=== PATIENT | male | born 1980 | race Hispanic/Latino ===

== ENCOUNTER 2017-04-10 06:11 | Inpatient (IN) | payer SELFPAY ==
--- NOTE | 2017-04-10 06:34 | ED.PDOC ---
History of Present Illness - General Information Source: patient, RN notes reviewed, Vital Signs reviewed Exam Limitations: no limitations - History of Present Illness Initial Comments: Patient reports he started with R sided abdominal pain @ 22:00 last night. The pain is sharp. He had 3 episodes of diarrhea and 2 of vomiting. No fever or chills. No urinary symptoms. Bumps in the car worsened the pain. The had pizza for dinner. Denies any prior similar episodes. Abdominal Pain Onset Location: RUQ, RLQ Pain Radiation: no radiation Quality: severe, sharpness, stabbing Timing/Duration: 7-24 hours Improving Factors: medication - Pepto seems to help briefly Worsening Factors: movement Associated Symptoms: diarrhea, nausea/vomiting <Dulce Henry - Last Filed: 04/10/17 06:32> <aVsiliy Gayle - Last Filed: 04/10/17 07:40> - General Chief Complaint: Abdominal Pain Stated Complaint: right lower abdomen pain Time Seen by Provider: 04/10/17 06:11 Review of Systems - Review of Systems Constitutional: States: no symptoms reported. Denies: chills, diaphoresis, fever, malaise Respiratory: States: no symptoms reported. Denies: short of breath Cardiology: States: no symptoms reported. Denies: chest pain Gastrointestinal/Abdominal: States: see HPI, abdominal pain, diarrhea, nausea, vomiting Genitourinary: States: no symptoms reported Musculoskeletal: States: no symptoms reported Skin: States: no symptoms reported Neurological: States: no symptoms reported All other Systems: No Change from Baseline <Dulce Henry - Last Filed: 04/10/17 06:32> Past Medical History (General) - Patient Medical History Hx Seizures: No Hx Stroke: No Hx Dementia: No Hx Asthma: No Hx of COPD: No Hx Cardiac Disorders: No Hx Congestive Heart Failure: No Hx Pacemaker: No Hx Hypertension: No Hx Thyroid Disease: No Hx Diabetes: No Hx Gastroesophageal Reflux: No Hx Renal Disease: No Hx Cancer: No Hx of HIV: No Hx Hepatitis C: No Hx MRSA: No - Vaccination History Hx Tetanus, Diphtheria Vaccination: No Hx Influenza Vaccination: No Hx Pneumococcal Vaccination: No - Social History Hx Tobacco Use: No Hx Alcohol Use: No Hx Substance Use: No Hx Substance Use Treatment: No Hx Depression: No <Dulce Henry - Last Filed: 04/10/17 06:32> Family Medical History - Family History Mother Family History: No Known <Dulce Henry - Last Filed: 04/10/17 06:32> Physical Exam - Physical Exam General Appearance: Alert, Comfortable, No apparent distress, Obese, Well Developed, Well Groomed, Well Hydrated, Well Nourished Neck: non-tender, full range of motion, supple, normal inspection Respiratory: lungs clear, normal breath sounds, no respiratory distress, no accessory muscle use Cardiovascular/Chest: regular rate, rhythm, no edema, no gallop, no murmur Peripheral Pulses: 2+ Gastrointestinal/Abdominal: normal bowel sounds, no pulsatile mass, guarding, rebound - RLQ, tenderness - RUQ & RLQ Extremity: normal range of motion, non-tender, normal inspection, no pedal edema Neurologic: alert, normal mood/affect, oriented x 3 Skin Exam: normal color, warm/dry <Dulce Henry - Last Filed: 04/10/17 06:32> Progress - Progress Progress: 04/10/17 07:37 pt with rlq pain since 10pm last night. no definite fever or prior symptoms. ct cw early appendicitis without abscess formation or perforation. no obstruction. npo except water since last night. previously healthy. consulting dr garner ofr surgical evaluation. cefoxitin given. blood cultures taken. vitals stable. - Results/Orders Results/Orders: Laboratory Tests 04/10/17 04/10/17 06:42 06:42 WBC 20.4 H* RBC 5.31 Hgb 15.1 Hct 46.0 MCV 86.7 MCH 28.5 MCHC 32.9 L RDW 12.7 Plt Count 317 MPV 8.2 Absolute Neuts (auto) 16.00 H Absolute Lymphs (auto) 2.40 Absolute Monos (auto) 1.60 H Absolute Eos (auto) 0.20 Absolute Basos (auto) 0.10 Neutrophils % 78.6 H Neutrophils % (Manual) 78.0 Lymphocytes % 12.0 L Lymphocytes % (Manual) 12.0 Monocytes % 7.8 Monocytes % (Manual) 6.0 Eosinophils % 1.1 Basophils % 0.5 Band Neutrophils 3.0 Eosinophils 1.0 Platelet Estimate Normal Normal RBC Morphology Normal rbc morph Sodium 140 Potassium 4.2 Chloride 103 Carbon Dioxide 27 Anion Gap 14.2 BUN 13 Creatinine 1.07 BUN/Creatinine Ratio 12.1 Random Glucose 107 H Serum Osmolality 280.0 Calcium 9.4 Total Bilirubin 0.5 AST 21 ALT 51 Alkaline Phosphatase 85 Serum Total Protein 7.8 Albumin 4.3 Globulin 3.5 Albumin/Globulin Ratio 1.2 Amylase [address] cw early appy without abscess formation or perforation. <Vasiliy Gayle - Last Filed: 04/10/17 07:40> Departure <Dulce Herny - Last Filed: 04/10/17 06:32> <Vasiliy Gayle - Last Filed: 04/10/17 07:40> - Departure Clinical Impression: Appendicitis Qualifiers: Appendicitis type: acute appendicitis Acute appendicitis type: with localized peritonitis Qualified Code(s): K35.3 - Acute appendicitis with localized peritonitis Disposition: Admit Patient Decision To Admit - Decistion To Admit Decision to Admit Reason: Medical Nature Decision to Admit Date: 04/10/17 Decision to Admit Time: 07:40 <Vasiliy Gayle - Last Filed: 04/10/17 07:40>
--- NOTE | 2017-04-10 07:26 | CT ---
EXAM DESCRIPTION: Abdomen/Pelvis w/Contrast CLINICAL HISTORY: R sided abd pain COMPARISON: None Available TECHNIQUE: CT of the abdomen and Pelvis was performed with IV contrast. This exam was performed according to our departmental dose-optimization program, which includes automated exposure control, adjustment of the mA and/or kV according to patient size and/or use of iterative reconstruction technique. FINDINGS: There is subtle periappendiceal inflammation consistent with acute appendicitis. No pneumoperitoneum, abscess or other complication. No adenopathy or ascites. There is mild diffuse fatty filtration of the liver with focal sparing adjacent to the gallbladder. The spleen, pancreas, kidneys and adrenals are unremarkable. No dilated small bowel loops. No concerning bone lesion. No lung base abnormality. The exam is otherwise unremarkable. IMPRESSION: Acute appendicitis without abscess, pneumoperitoneum or other complication. Findings were reported by telephone to Dr. Gayle by me at the time of this dictation. Electronically signed by: Damián Hussein MD 04/10/2017 7:24 AM CDT Workstation: [facility]
[2017-04-10] MEDS ORDERED: cefOXitin SODIUM 2 GM in SODIUM CHL 0.9% 50ML MIN-BAG+ 50 ML IVPB ONE (07:27)
--- NOTE | 2017-04-10 07:38 | RAD ---
EXAM DESCRIPTION: XR CHEST 1 VIEW CLINICAL HISTORY: Preoperative respiratory evaluation. Z01.811 COMPARISON: None TECHNIQUE: Single frontal chest radiograph FINDINGS: Heart size is normal. The lungs are clear. No acute bony abnormality. IMPRESSION: No acute cardiopulmonary process. Electronically signed by: Triston Quiroz MD 04/10/2017 7:37 AM CDT
[2017-04-10] MEDS ORDERED: cefOXitin SODIUM 2 GM INJ IVPB ONE ×3 (07:40→19:34)
[2017-04-10] MEDS ORDERED: SODIUM CHL 0.9% 50ML MIN-BAG+ 50 ML IVPB ONE ×2 (07:40→19:34)
[2017-04-10] MEDS ORDERED: LACTATED RINGERS 1,000 ML ONE ×3 (08:59→12:25)
[2017-04-10] MEDS ORDERED: LACTATED RINGERS 1,000 ML IVS PRN (09:02)
--- NOTE | 2017-04-10 09:04 | HP ---
CHIEF COMPLAINT: Abdominal pain. HISTORY OF PRESENT ILLNESS: The patient is a 36-year-old male who was in his normal state of health until yesterday when yesterday evening he developed abdominal pain, nausea and vomited twice. He went to bed still hurting and woke hurting, somewhat more in the right lower quadrant. He has had some low grade feeling of warmth, but no chills. He denies previous episodes of like illness. There is no one else at home, that includes his and children, that are sick. He denies urinary tract symptoms. PAST MEDICAL HISTORY: Noncontributory. CURRENT MEDICATIONS: He takes no medications on a routine basis. ALLERGIES: NO KNOWN DRUG ALLERGIES. FAMILY HISTORY: Positive for diabetes, hypertension. 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 He does not drink, smoke and has not done street drugs. REVIEW OF SYSTEMS: There has been no change in his bowel habits, no weight loss , no upper respiratory symptoms. He had an episode two to three years of shortness of breath and chest pain for which he underwent a stress test and was said to be within normal limits. PHYSICAL EXAMINATION: GENERAL: The patient is awake, alert, cooperative, in mild to moderate distress. VITAL SIGNS: The patient is currently afebrile, normotensive. HEENT: Sclerae nonicteric. Mucous membranes moist. NECK: Without adenopathy. BACK: Without CVA tenderness. CHEST: Equal breath sounds bilaterally. HEART: Regular rate and rhythm without murmur. ABDOMEN: Soft. Tender especially in the right lower quadrant with some rebound. RECTAL: Deferred. EXTREMITIES: Without cyanosis, clubbing or edema. LABORATORY: White blood cell count 20,000 with 78% neutrophils. Hemoglobin 15 , platelet count 317,000. PT 11.8, INR 1.04, PT-T 33.2. Urinalysis is clear with specific gravity of 1.020. Creatinine 1.07. Blood sugar 107. Potassium 4.2. Liver function tests are within normal limits. Amylase and lipase are within normal limits. EKG shows a question of possible inferior infarct, but otherwise normal sinus rhythm. ASSESSMENT: 1. Right lower quadrant abdominal pain. 2. Leukocytosis. 3. Abnormal CT scan consistent with early appendicitis. PLAN: The patient has been started on IV Mefoxin. The risks, benefits and alternatives to laparoscopic appendectomy were discussed with the patient and we will proceed with that later today. A hospitalist consultation will be obtained about the EKG prior to anesthesia. #[id number] [facility]
[2017-04-10] MEDS ORDERED: MORPHINE SULFATE INJ 10 MG/ML VIAL IV ONE (09:21)
[2017-04-10] MEDS ORDERED: BUPIVACAINE 0.25% W/EPI 50 ML VIAL INJ ONE (10:37)
[2017-04-10] MEDS ORDERED: fentaNYL CITRATE INJ 50 MCG/ML AMP ONE ×2 (10:47→12:16)
[2017-04-10] MEDS ORDERED: ROCURONIUM BROMIDE 10 MG/ML VIAL ONE (10:48)
[2017-04-10] MEDS ORDERED: ATROPINE SULFATE 0.4 MG/ML 1ML VIAL IV ONE (12:00)
[2017-04-10] MEDS ORDERED: SODIUM CHLORIDE 0.9% 1,000 ML BAG IVS ONE (12:00)
[2017-04-10] MEDS ORDERED: NEOSTIGMINE METHYLSULFATE 1 MG/ML ML IV ONE (12:00)
[2017-04-10] MEDS ORDERED: PROPOFOL 200 MG/20 ML VIAL IV ONE (12:00)
[2017-04-10] MEDS ORDERED: LIDOCAINE 1% 10 ML VIAL INJ ONE (12:00)
[2017-04-10] MEDS ORDERED: ONDANSETRON INJ 4 MG/2 ML VIAL IV PRN (12:44)
[2017-04-10] MEDS ORDERED: SODIUM CHLORIDE 0.9% 250ML 250 ML ONE (13:02)
--- NOTE | 2017-04-10 13:14 | OP ---
DATE OF PROCEDURE: 04/10/17 PREOPERATIVE DIAGNOSIS: 1. Right lower quadrant abdominal pain. 2. Leukocytosis. 3. Abnormal CT scan suspicious for appendicitis. POSTOPERATIVE DIAGNOSIS: 1. Right lower quadrant abdominal pain. 2. Leukocytosis. 3. Abnormal CT scan suspicious for appendicitis. 4. Acute gangrenous appendicitis. PROCEDURE: 1. Laparoscopic appendectomy. SURGEON: Tony Gallegos MD. SCREEN PRINTING INSPECTOR: None. ANESTHESIA: General endotracheal anesthesia and local infiltration of 0.25% Marcaine with epinephrine. INDICATION: The patient is a 36-year-old male who developed abdominal pain with nausea and vomiting yesterday. He presented to the Emergency Room with worsening right lower quadrant pain. White count was 20,000. They did a CT scan which revealed an inflamed appendix. He was brought to the Surgical Suite this morning after a review of his previous EKG with today's EKG and it was felt to be unchanged and he was given IV Mefoxin. Also, the patient had explained to him the risks, benefits and alternatives to appendectomy. He agrees to the plan and will be taken to the Operating Room. He was brought to the Surgical Suite today. FINDINGS: The distal 2/3 of the appendix was quite gangrenous with some suppuration. The base appeared to be in excellent shape. There was some bleeding from the mesentery, but after we held pressure with a hemostat with a grasper, it seemed to stop. No other pathology was identified. PROCEDURE: After adequate general endotracheal anesthesia was obtained, the patient was prepped and draped in the usual sterile manner. The infraumbilical area was infiltrated with 0.25% Marcaine with epinephrine. A curvilinear incision was fashioned and using blunt dissection, it was carried down to the fascia. Traction sutures were placed on either side of the midline. A small incision was made in the midline fascia. The peritoneum was opened bluntly. Jt trocar was introduced under direct vision into the abdominal cavity and fixed in place with a 20 mL balloon. CO2 was then insufflated until a pressure of 12 mmHg was reached and the abdomen was tympanitic in all four quadrants. When this was done, the laparoscope was introduced and the abdomen was inspected with the previously noted findings. The patient was then placed in the Trendelenburg position. The abdomen was inspected with no obvious findings at this time. The port was placed to the right of the midline due to fat in the suprapubic area. The right lower quadrant was explored and the appendix was identified. At this point, a left lower quadrant port was placed under direct vision and fixed in place with a balloon. At this point, the appendix was identified and elevated. The base of the appendix was identified and the base was elevated. At this point, there was some bleeding from the mesentery, so this was clamped with a grasper until there was no further active bleeding identified. The mesoappendix at the base was divided using blunt dissection and using an Endo-GILMA. The base of the appendix was stapled. It did take two firings of the stapler. When this was done, the mesoappendix was divided with another firing of the Endo-GILMA. The appendix was placed in an EndoCatch bag and removed from the infraumbilical port site in the usual manner under direct vision. When this was done, the right lower quadrant was irrigated with saline. Some clots and blood were aspirated and mopped up using two 4x4s introduced through the right lower quadrant port and removed. When this was done, once again, there was no obvious bleeding, so the left lower quadrant port was removed and the port site fascia was closed with two simple sutures of 0 Vicryl placed using the EndoClose device. When these were tightened and tied , hemostasis was noted to be adequate. At this point, the suprapubic port was removed under direct vision. No bleeding was noted there. At this point, the CO2, the laparoscope and the infraumbilical port were removed. The infraumbilical port site fascia was approximated with a single [id number] suture of 0 Vicryl. Subcutaneous tissue was irrigated copiously with saline. Skin edges were loosely re-approximated with skin stapler. Sterile dressings were applied. The patient was awakened and taken to the Recovery Room in good and stable condition. Estimated blood loss was 100 to 150 mL. All sponge, needle and instrument counts were correct. #[id number] [facility]
[2017-04-10] MEDS ORDERED: SODIUM CHLORIDE 0.9% (FLUSH) 10 ML SYG IV PRN (14:22)
[2017-04-10] MEDS: cefOXitin SODIUM 2 GM in SODIUM CHL 0.9% 50ML MIN-BAG+ 50 ML IVPB SCH ×2 (15:25→21:01)
[2017-04-10] MEDS: MORPHINE SULFATE INJ 10 MG/ML VIAL IV PRN ×2 (16:50→20:54)
[2017-04-10] MEDS: metroNIDAZOLE IV PREMIX 500MG 500 MG in PREMIX BAG 1 BAG IVPB SCH (18:53)
[2017-04-10] MEDS ORDERED: metroNIDAZOLE IV PREMIX 500MG 100 ML IVPB ONE (18:54)
[2017-04-10] MEDS: LACTATED RINGERS 1,000 ML IVS PRN (18:54)
[2017-04-11] MEDS ORDERED: metroNIDAZOLE IV PREMIX 500MG 100 ML IVPB ONE ×3 (01:06→19:04)
[2017-04-11] MEDS ORDERED: SODIUM CHL 0.9% 50ML MIN-BAG+ 50 ML IVPB ONE ×3 (01:10→19:01)
[2017-04-11] MEDS ORDERED: cefOXitin SODIUM 2 GM INJ IVPB ONE ×3 (01:11→19:01)
[2017-04-11] MEDS: metroNIDAZOLE IV PREMIX 500MG 500 MG in PREMIX BAG 1 BAG IVPB SCH ×3 (01:31→19:04)
[2017-04-11] MEDS: LACTATED RINGERS 1,000 ML IVS PRN ×2 (01:33→12:45)
[2017-04-11] MEDS: MORPHINE SULFATE INJ 10 MG/ML VIAL IV PRN ×7 (01:41→21:22)
[2017-04-11] MEDS: cefOXitin SODIUM 2 GM in SODIUM CHL 0.9% 50ML MIN-BAG+ 50 ML IVPB SCH ×3 (05:22→21:04)
[2017-04-11] MEDS ORDERED: MAGNESIUM HYDROXIDE 30 ML UD PO ONE (09:16)
[2017-04-12] MEDS ORDERED: metroNIDAZOLE IV PREMIX 500MG 100 ML IVPB ONE ×2 (00:04→07:39)
[2017-04-12] MEDS: MORPHINE SULFATE INJ 10 MG/ML VIAL IV PRN (00:08)
[2017-04-12] MEDS: metroNIDAZOLE IV PREMIX 500MG 500 MG in PREMIX BAG 1 BAG IVPB SCH ×2 (00:12→09:08)
[2017-04-12] MEDS: HYDROcodone 5MG/APAP 325MG 1 EA TAB PO PRN ×2 (02:43→11:20)
[2017-04-12] MEDS ORDERED: SODIUM CHL 0.9% 50ML MIN-BAG+ 0 ML IVPB ONE (05:06)
[2017-04-12] MEDS ORDERED: cefOXitin SODIUM 2 GM INJ IVPB ONE ×2 (05:06→07:39)
[2017-04-12] MEDS: cefOXitin SODIUM 2 GM in SODIUM CHL 0.9% 50ML MIN-BAG+ 50 ML IVPB SCH (05:20)
[2017-04-12] MEDS ORDERED: SODIUM CHL 0.9% 50ML MIN-BAG+ 50 ML IVPB ONE (07:38)
[2017-04-12] MEDS: LACTATED RINGERS 1,000 ML IVS PRN (07:56)
[2017-04-12 10:22] VITALS: BP 147/78; TEMP 97.6; O2SAT 97
--- NOTE | 2017-04-12 10:32 | DS ---
FINAL DIAGNOSIS: 1. Acute suppurative appendicitis pending pathology report. SURGICAL PROCEDURE: Laparoscopic appendectomy on 04/10/17. HISTORY OF PRESENT ILLNESS: The patient is a 36-year-old male who was in his normal state of health until yesterday when yesterday evening he developed abdominal pain, nausea and vomited twice. He went to bed still hurting and woke hurting, somewhat more in the right lower quadrant. He has had some low grade feeling of warmth, but no chills. He denies previous episodes of like illness. There is no one else at home, that includes his and children, that are sick. He denies urinary tract symptoms. LABORATORY: On the date of discharge, the patient's white blood cell count was down to 13,900, hemoglobin 12.7, 69% neutrophils, platelet count 267,000. HOSPITAL COURSE: The patient was admitted from the Emergency Room to the Surgical Suite. He had been given IV Mefoxin preoperatively. He underwent laparoscopic appendectomy with a little more than normal bleeding. Camarena catheter was left overnight. He stayed NPO overnight even though he had clear liquids ordered. His IV fluids were running at 150 cc an hour. He had good urine output, had no nausea, and tolerated a clear liquid breakfast the next morning, so his IV was cut down to 80 cc. He began ambulating and started incentive spirometry because he had a low grade temperature elevation of 99.9. With the ambulation, his temperature stayed down. On the second postoperative morning, he was for evaluation, normotensive, was passing flatus and tolerating the regular diet that morning. At that time, he was discharged home. CONDITION ON DISCHARGE: Good. PROGNOSIS: Excellent pending pathology report. DISPOSITION: He is discharged on a regular diet and told to push fluids. He was told he can ambulate, but do not lifting or exercise. He was told he can shower, but not tub bath. He was discharged with prescriptions for [place] 5, #40 , 1 to 2 every 4 hours p.r.n. pain, Ceftin 500 mg twice daily, Flagyl 500 mg 3 times daily. He has instructions and his put the hospital phone number in the phone to call if he has problems or questions and he will be appointed to see me on 04/16/17. #[id number] [facility]
[2017-04-13] MEDS ORDERED: IV SET AND CAP CHANGE INJ INJ SCH (09:00)
== END 2017-04-12 12:00 | disposition home or self-care (01) | DRG 343 ==
LOC: ER 06:11 → MS 13:35
PROVIDERS: ADMIT Surgery; ATTEND Surgery
PROC: BW21YZZ Computerized Tomography (CT Scan) of Abdomen and Pelvis using Other Contrast (ICD-10-PCS; 2017-04-10)
PROC: 0DTJ4ZZ Resection of Appendix, Percutaneous Endoscopic Approach (ICD-10-PCS; principal; 2017-04-10 10:45)
DX: K35.80 Unspecified acute appendicitis (principal)